=== PATIENT | female | born 1945 | race African-American/Black ===

== ENCOUNTER 2022-06-20 11:43 | Observation (INO) ==
[2022-06-20] MEDS ORDERED: Ketorolac 30 MG/ML VIAL IVP ONE (12:34)
[2022-06-20 12:58] LABS: Hemoglobin 6.7 g/dL (11.5-15.4)
[2022-06-20 13:00] LABS: Hematocrit 23.5 % (35.3-44.9); Immature Platelets 2.9 % (1.1-6.1); Mean Corpuscular HGB Conc 28.5 g/dL (31.6-35.5); Mean Corpuscular Hemoglobin 25.2 pg (28.0-33.3); Mean Corpuscular Volume 88.3 fL (83.0-100.0); Red Blood Count 2.66 M/mcL (3.82-4.97); Red Cell Distribution Width 19.6 % (11.5-14.5)
[2022-06-20 13:01] LABS: Platelet Count 47 K/mcL (140-400)
[2022-06-20 13:18] LABS: Albumin 2.7 g/dL (3.5-5.7); Albumin/Globulin Ratio 0.5 (1.1-2.2); Bilirubin,Direct 0.3 mg/dL (0.0-0.2); Bilirubin,Indirect 0.7 mg/dL (0.0-1.0); Calcium 8.4 mg/dL (8.6-10.3); Globulin 5.1 g/dL (2.4-3.5); Potassium 4.2 mEq/L (3.5-5.1); Total Protein 7.8 g/dL (6.4-8.9)
[2022-06-20 14:35] LABS: Bilirubin,Urine Negative (Negative); Blood,Urine Negative (Negative); Clarity,Urine Clear (Clear); Color,Urine Light-Yellow (Yellow); Glucose,Urine (UA) Normal (Normal); Ketones,Urine Negative (Negative); Leukocyte Esterase,Urine Negative (Negative); Nitrite,Urine Negative (Negative); Protein,Urine Negative (Neg-Trace); Specific Gravity,Urine 1.013 (1.010-1.025); Urobilinogen,Urine Normal (Normal)
[2022-06-20] MEDS ORDERED: Pantoprazole 40 MG VIAL IVP ONE (15:42)
[2022-06-20] MEDS ORDERED: Octreotide 50 MCG/ML INJ IVP ONE (15:43)
[2022-06-20] MEDS ORDERED: Melatonin 3 MG TABLET PO PRN (15:57)
[2022-06-20] MEDS ORDERED: MOM Conc 10 ML UD.LIQ PO PRN (15:57)
[2022-06-20] MEDS ORDERED: Mag Hydrox/Al Hydrox/Simeth 30 ML UDC PO PRN (15:57)
[2022-06-20] MEDS ORDERED: Ondansetron 4 MG/2 ML VIAL IVP PRN (15:57)
[2022-06-20] MEDS ORDERED: Naloxone 0.4 MG/ML INJ IVP PRN (15:57)
[2022-06-20] MEDS ORDERED: 0.9 % Sodium Chloride 250 ML ONE (17:21)
[2022-06-20] MEDS: cefTRIAXone 1,000 MG in Water for inj. (sterile) 10 ML IVP SCH (17:26)
[2022-06-21] MEDS: Pantoprazole 40 MG VIAL IVP SCH ×2 (05:39→18:43)
[2022-06-21 06:19] LABS: Hematocrit 26.1 % (35.3-44.9); Hemoglobin 7.7 g/dL (11.5-15.4); Immature Platelets 3.4 % (1.1-6.1); Mean Corpuscular HGB Conc 29.5 g/dL (31.6-35.5); Mean Corpuscular Hemoglobin 25.8 pg (28.0-33.3); Mean Corpuscular Volume 87.3 fL (83.0-100.0); Red Blood Count 2.99 M/mcL (3.82-4.97); Red Cell Distribution Width 19.2 % (11.5-14.5); White Blood Count 2.5 K/mcL (4.3-11.1)
[2022-06-21 06:22] LABS: Platelet Count 38 K/mcL (140-400)
[2022-06-21 06:38] LABS: Albumin 2.5 g/dL (3.5-5.7); Albumin/Globulin Ratio 0.5 (1.1-2.2); Bilirubin,Total 1.1 mg/dL (0.3-1.0); Calcium 8.3 mg/dL (8.6-10.3); Globulin 4.7 g/dL (2.4-3.5); Magnesium 1.8 mg/dL (1.6-2.6); Potassium 4.9 mEq/L (3.5-5.1); Total Protein 7.2 g/dL (6.4-8.9)
[2022-06-21 10:22] LABS: % Iron Saturation 22 % (15-50); Iron 55 mcg/dL (50-170); Transferrin 176 mg/dL (203-362)
[2022-06-21 10:41] LABS: Ferritin 34 ng/mL (10-120)
[2022-06-21 12:21] LABS: Folate > 22.3 ng/mL (3.0-16.0); Vitamin B12 433 pg/mL (250-1100)
[2022-06-21 14:21] LABS: Glucose,Peritoneal Fluid 87 mg/dL (No Ref Range); LDH,Peritoneal Fluid 26 Units/L (No Ref Range); Total Protein,Peritoneal Fluid < 2.0 g/dL
[2022-06-21] MEDS ORDERED: Albumin 25% 25gram/100mL 25 GM/100 ML IV.SOLN IVPB ONE (15:12)
[2022-06-21 15:20] LABS: RBC,Peritoneal Fluid < 2000 RBC/mcL
[2022-06-21] MEDS: cefTRIAXone 1,000 MG in Water for inj. (sterile) 10 ML IVP SCH (16:53)
[2022-06-21 19:13] VITALS: BP 100/51; PULSE 65; TEMP 97.8; O2SAT 100
[2022-06-21 21:08] LABS: Appearance of Peritoneal Fl CLEAR (Clear); Basophils,Peritoneal Fluid 0 %; Eosinophils,Peritoneal Fluid 0 %
[2022-06-23 01:47] LABS: Fluid Source for Albumin PERITONEAL FL
== END 2022-06-21 20:26 | disposition home or self-care (01) ==
LOC: 3NENU 11:43 → EMEROOARM 11:43 → 3NENU 15:51
PROVIDERS: ADMIT Internal Medicine; ATTEND Internal Medicine